=== PATIENT | male | born 1970 | race Caucasian/White ===

== ENCOUNTER 2020-05-01 10:41 | Emergency (ER) | payer OTHER ==
[~2020-05-01] VITALS: Ht 177.8 cm; Wt 173.3 kg
--- NOTE | 2020-05-01 11:25 | NUR ---
MOTHER AT BEDSIDE, PATIENT AND HIS FAMILY LIVE WITH HER. PATIENT REPORTS WAKING UP FROM HIS RECLINER SEEING THE RIGHT SIDE OF THE ROOM SPINNING 'but not" 'PULLING ME DOWN TO THE RIGHT" LAST NIGHT ATE SALAMI AND THREW IT UP AND VOMITED AGAIN MULTIPLE EPISODES OF DRY HEAVING REPORTS BEING "OK" SITTING WITHOUT MOVING, WHEN MOVES HIS HEAD HE GETS REALLY WOBBLY
--- NOTE | 2020-05-01 11:34 | NUR ---
PATIENT REPORTS FREQUENT VELÁZQUEZ
--- NOTE | 2020-05-01 11:35 | NUR ---
ERICA RICE IN ROOM
[2020-05-01] MEDS ORDERED: meclizine 12.5mg tablet PO ONE (11:45)
[2020-05-01 12:09] LABS: BASOPHILS # (AUTO) 0.1 X10'3 (0-0.2); BASOPHILS % (AUTO) 0.5 % (0-1); EOSINOPHILS % (AUTO) 0.4 % (0-6); HEMATOCRIT 46.2 % (42.0-52.0); HEMOGLOBIN 15.6 g/dl (14.0-17.9); LYMPHOCYTES # (AUTO) 1.2 X10'3 (1.1-4.8); LYMPHOCYTES % (AUTO) 11.5 % (21-51); MEAN CORPUSCULAR HEMOGLOBIN 28.1 PG (27.0-31.0); MEAN CORPUSCULAR HGB CONC 33.7 g/dL (33.0-36.5); MEAN CORPUSCULAR VOLUME 83.2 FL (78-98); MEAN PLATELET VOLUME 8.6 FL (7.4-10.4); MONOCYTES # (AUTO) 0.4 X10'3 (0-0.9); MONOCYTES % (AUTO) 3.5 % (2-12); NEUTROPHILS # (AUTO) 8.9 X10'3 (1.8-7.7); NEUTROPHILS % (AUTO) 84.1 % (42-75); PLATELET COUNT 208 X10'3 (140-440); RED BLOOD COUNT 5.55 X10'6 (4.70-6.10); RED CELL DISTRIBUTION WIDTH 14.7 % (11.5-14.5); WHITE BLOOD COUNT 10.6 X10'3 (4.5-11.0)
[2020-05-01] MEDS ORDERED: ondansetron 4mg rapidly disintigrating tab PO ONE (12:15)
[2020-05-01 12:25] LABS: ALANINE AMINOTRANSFERASE 35 U/L (12-78); ALBUMIN 3.5 G/DL (3.4-5.0); ALBUMIN/GLOBULIN RATIO 0.8 (1.1-1.5); ALKALINE PHOSPHATASE 84 IU/L (46-116); ANION GAP 7 (8-16); ASPARTATE AMINO TRANSFERASE 18 U/L (10-37); BILIRUBIN,TOTAL 0.3 MG/DL (0.1-1.0); BLOOD UREA NITROGEN 12 MG/DL (7-18); BUN/CREATININE RATIO 13.3 (5.4-32.0); CALCIUM 8.7 MG/DL (8.5-10.1); CHLORIDE 104 MMOL/L (99-107); GLUCOSE 135 MG/DL (70-104); POTASSIUM 3.6 MMOL/L (3.5-5.1); SODIUM 137 MMOL/L (135-145); TOTAL CARBON DIOXIDE 25.6 MMOL/L (24-32); TOTAL PROTEIN 7.9 G/DL (6.4-8.2); eGFR 90 ML/MIN
[2020-05-01] MEDS ORDERED: MECL-159 PO (12:43)
[2020-05-01 12:54] VITALS: BP 171/85
== END 2020-05-01 12:50 | disposition home or self-care (01) ==
LOC: ER 10:41
DX: I10 Essential (primary) hypertension (principal); R42 Dizziness and giddiness; Z79.899 Other long term (current) drug therapy
CPT/HCPCS: 36415; 80053; 85025; 93005; 99284; J8597